=== PATIENT | male | born 1970 | race African-American/Black ===

== ENCOUNTER 2016-09-17 13:31 | Emergency (ER) | payer BC ==
[~2016-09-17] VITALS: Ht 185.4 cm; Wt 95.9 kg
[2016-09-17] MEDS ORDERED: FLEXERIL5 MG PO (16:32)
[2016-09-17] MEDS ORDERED: MOTRIN600 MG PO (16:32)
[2016-09-17 17:05] VITALS: BP 183/113
== END 2016-09-17 17:07 | disposition home or self-care (01) ==
LOC: TRA 13:31 → EME 13:31 → TRA 17:07
DX: S16.1XXA Strain of muscle, fascia and tendon at neck level, initial encounter (principal); V89.2XXA Person injured in unspecified motor-vehicle accident, traffic, initial encounter; Y92.410 Unspecified street and highway as the place of occurrence of the external cause; R07.9 Chest pain, unspecified; M25.551 Pain in right hip; M25.552 Pain in left hip; M25.531 Pain in right wrist; I10 Essential (primary) hypertension
CPT/HCPCS: 71010; 72040; 72170; 73110; 99281; 99284; J1885